=== PATIENT | female | born 1990 | race Hispanic/Latino ===

== ENCOUNTER 2023-05-27 13:40 | Emergency (ER) | payer OTHER ==
[~2023-05-27] VITALS: Ht 165.1 cm; Wt 99.8 kg
[2023-05-27 14:25] VITALS: BP 134/88; PULSE 92; RESP 17
[2023-05-27 15:43] LABS: ADD UA MICROSCOPIC YES; APPEARANCE,URINE CLOUDY (CLEAR); BILIRUBIN,URINE NEGATIVE (NEGATIVE); COLOR,URINE YELLOW (YELLOW); GLUCOSE, URINE (UA) NEGATIVE (NEGATIVE); KETONES,URINE NEGATIVE (NEGATIVE); LEUKOCYTE ESTERASE ,URINE 500 Leu/uL (NEGATIVE); NITRATE,URINE NEGATIVE (NEGATIVE); OCCULT BLOOD,URINE LARGE (NEGATIVE); PH,URINE 6.5 (5.0-8.0); PROTEIN,URINE 50 mg/dL (NEGATIVE); UROBILINOGEN,URINE 0.2 mg/dL (0.2-1.0)
[2023-05-27 15:45] LABS: BACTERIA,URINE FEW /HPF (None Seen); MUCUS,URINE MOD LPF (None Seen); RBC,URINE TNTC /HPF (0-1); SQUAMOUS EPITHELIAL CELL,UR MOD /HPF (0-2); UNCLASSIFIED CRYSTAL 1 /HPF (None Seen); WBC,URINE 51-100 /HPF (0-1); YEAST,URINE BUDDING RARE /HPF (None Seen)
[2023-05-27 15:53] LABS: HCG,QUALITATIVE URINE NEGATIVE (NEGATIVE)
[2023-05-27] MEDS ORDERED: SULF1TAB42 PO (19:36)
[2023-05-27] MEDS ORDERED: LIDOCAINE HCL 1% 20 ML VIAL ONE (19:43)
[2023-05-27] MEDS ORDERED: LIDOCAINE HCL 1% 20 ML VIAL INJ SCH (20:00)
[2023-05-27] MEDS ORDERED: CEFTRIAXONE 1G VIAL IM ONE (20:00)
== END 2023-05-27 20:00 | disposition home or self-care (01) ==
LOC: EDH 13:40
DX: N39.0 Urinary tract infection, site not specified (principal); Z98.890 Other specified postprocedural states
CPT/HCPCS: 99285; 74176; 87088; 81001; 81025; 96372; J0696